=== PATIENT | female | born 1955 | race Hispanic/Latino ===

== ENCOUNTER 2018-05-17 07:03 | Day surgery (SDC) | payer MEDICARE ==
[2018-05-17 10:03] LABS: Hematocrit 43.4 % (30.3-42.9); Hemoglobin 14.7 gm/dl (10.1-14.3); Mean Corpuscular HGB Conc 34 % (30-34); Mean Corpuscular Hemoglobin 31 pg (28-32); Mean Corpuscular Volume 90 fl (79-97); Platelet Count 277 K/mm3 (140-440); Red Blood Count 4.83 M/mm3 (3.65-5.03)
[2018-05-17 10:53] LABS: INR 0.83 (0.87-1.13)
[2018-05-17] MEDS ORDERED: XYLOCAINE 1% 20 mL ONE (11:42)
[2018-05-17] MEDS ORDERED: VERSED IV ONE (11:52)
[2018-05-17] MEDS ORDERED: SUBLIMAZE IV ONE (11:58)
[2018-05-17] MEDS ORDERED: GELFOAM 12 X 7 TP ONE (12:31)
--- NOTE | 2018-05-17 13:51 | Cat Scan Report ---
CT BIOPSY OF ABDOMINAL/RETRO MASS HISTORY: Left adrenal mass. DESCRIPTION OF PROCEDURE: Informed consent was obtained. Sterile technique was utilized. Conscious sedation was accomplished with Versed and fentanyl. Skin anesthetization with 1% lidocaine. Independent cardiorespiratory monitoring by RN. The patient was sedated for 20 minutes. Intra-observer time of [address] guidance, a 19-gauge introducer needle was advanced to the leading edge of a 3.9 cm left adrenal mass. 3 separate 2.2 cm 20-gauge core biopsies were obtained. Pathology was present in the CT suite and deemed the samples adequate. Followup scan demonstrated trace hemorrhage at the biopsy site but no uncontained hemorrhage. A small amount of Gelfoam was placed in the biopsy tract. The patient tolerated the procedure without complaint and left radiology in stable condition. IMPRESSION: Successful CT-guided biopsy of a 3.9 cm left adrenal mass.
[2018-05-17 15:37] VITALS: BP 114/43
== END 2018-05-17 15:25 | disposition home or self-care (01) ==
LOC: CATHLABREC 07:03 → EDSTATUS 08:30 → CATHLABREC 15:25
PROVIDERS: ATTEND Internal Medicine Endocrinology, Diabetes & Metabolism
DX: E27.8 Other specified disorders of adrenal gland (principal); R19.09 Other intra-abdominal and pelvic swelling, mass and lump; E78.00 Pure hypercholesterolemia, unspecified; J44.9 Chronic obstructive pulmonary disease, unspecified; M19.90 Unspecified osteoarthritis, unspecified site; Z98.49 Cataract extraction status, unspecified eye; Z98.890 Other specified postprocedural states; Z80.8 Family history of malignant neoplasm of other organs or systems; Z79.899 Other long term (current) drug therapy; Z79.84 Long term (current) use of oral hypoglycemic drugs
CPT/HCPCS: 36415; 49180; 77012; 82962; 85027; 85610; 85730; 88173; 88305; 88333; 88342; A4649; J3010

== ENCOUNTER 2019-03-11 17:10 | Emergency (ER) | payer MEDICARE ==
--- NOTE | 2019-03-11 17:19 | Event Note ---
ED Screening Note Date of service: 03/11/19 Time: 17:18 ED Screening Note: 63 y/o female comes for right wrist pain s.p fall yesterday. This initial assessment/diagnostic orders/clinical plan/treatment(s) is/are subject to change based on patients health status, clinical progression and re-assessment by fellow clinical providers in the ED. Further treatment and workup at subsequent clinical providers discretion. Patient/guardian urged not to elope from the ED as their condition may be serious if not clinically assessed and managed. Initial orders include:
--- NOTE | 2019-03-11 18:08 | XRay Report ---
Right wrist 3 views INDICATION: Right wrist pain after injury. IMPRESSION: Evidence of an impacted nondisplaced fracture through the distal radius. Osteopenia. Signer Name: Danny Arnold MD Signed: 03/11/2019 6:04 PM Workstation Name: [id number]
[2019-03-11] MEDS ORDERED: NORCO 5/325 PO ONE (19:46)
[2019-03-11] MEDS ORDERED: IBUPROFEN PO ONE (19:48)
[2019-03-11] MEDS ORDERED: ZOFRAN ODT PO ONE (19:48)
--- NOTE | 2019-03-11 20:37 | Emergency Department Report ---
ED Upper Extremity Inj HPI - General Chief Complaint: Extremity Injury, Upper Stated Complaint: FALL/RT HAND INJURY Time Seen by Provider: 03/11/19 19:30 Source: patient Mode of arrival: Ambulatory Limitations: No Limitations - History of Present Illness Initial Comments: Patient is a 63-year-old white female with a history of COPD, seizures, hypertension, [id number] diabetes and chronic ulcer that isn't presents to the ED with complaint of acute onset persistent severe right wrist pain and swelling after she tripped over her dog and fell down landing on the right wrist 24 hours ago. Patient states that she is unable to perform any active range of motion without edges because of severe pain. Patient states that she's been taking her narcotic pain medications, Percocet at home with no relief. Patient denies head or neck injury, loss of consciousness, seizures, ankle, chest pain, shortness of breath, back pain, numbness and tingling of upper and lower extremities bilaterally, hip pain, change in vision or abdominal pain. MD Complaint: Injury to:: right, wrist (pain) -: Sudden, hour(s) (24) Other Extremity Injury: Wrist: Right (pain) Other Injuries: none Handedness: right Place: home Severity scale (0 -10): 8 Improves With: none Worsens With: movement of extremity Context: fall, injury Associated Symptoms: denies other symptoms, other. denies: weakness, numbness, neck pain, suspects foreign body, nausea/vomiting, heard/felt popping sensat - Related Data Home Medications Medication Instructions Recorded Confirmed Last Taken ALBUTEROL Inhaler (OR & NICU) 8.5 gm INHALATION PRN PRN 05/17/18 05/17/18 05/16/18 [ProAir HFA Inhaler] 1 puff Atorvastatin Calcium 40 mg PO DAILY 05/17/18 05/17/18 05/16/18 40 mg Budesonide/Formoterol Fumarate 10.2 mg INHALATION DAILY 05/17/18 05/17/18 05/16/18 [Symbicort 160-4.5 Mcg Inhaler] 1 puff Furosemide [Lasix TAB] 40 mg PO DAILY 05/17/18 05/17/18 05/16/18 40 Metformin HCl 500 mg PO DAILY 05/17/18 05/17/18 05/16/18 1 tab Omeprazole 40 mg PO DAILY 05/17/18 05/17/18 05/16/18 40 mg Valsartan 80 mg PO DAILY 05/17/18 05/17/18 05/16/18 1 Tab glipiZIDE [Glipizide] 5 mg PO TID 05/17/18 05/17/18 05/16/18 5 mg Previous Rx's Medication Instructions Recorded Last Taken Type Ibuprofen [Motrin] 400 mg PO Q8H PRN #20 tablet 03/11/19 Unknown Rx tiZANidine [Zanaflex 4mg TAB] 4 mg PO Q8H PRN #15 tablet 03/11/19 Unknown Rx Allergies Allergy/AdvReac Type Severity Reaction Status Date / Time No Known Allergies Allergy Verified 05/17/18 07:38 ED Review of Systems ROS: Stated complaint: FALL/RT HAND INJURY Other details as noted in HPI Constitutional: denies: chills, fever Eyes: denies: eye pain, eye discharge, vision change ENT: denies: ear pain, throat pain Respiratory: denies: cough, shortness of breath, wheezing Cardiovascular: denies: chest pain, palpitations Endocrine: no symptoms reported Gastrointestinal: denies: abdominal pain, nausea, diarrhea Genitourinary: denies: urgency, dysuria, discharge Musculoskeletal: joint swelling (right wrist mild swelling), arthralgia (right wrist pain). denies: back pain Skin: denies: rash, lesions Neurological: denies: headache, weakness, paresthesias Psychiatric: denies: anxiety, depression Hematological/Lymphatic: denies: easy bleeding, easy bruising ED Past Medical Hx - Past Medical History Previous Medical History?: Yes Hx Diabetes: Yes Hx Arthritis: Yes Hx Seizures: Yes Hx Asthma: Yes Hx COPD: Yes (uses 2.5 L oxygen as needed) Hx Tuberculosis: No - Surgical History Past Surgical History?: Yes Hx Breast Surgery: Yes (biposies x4) - Social History Smoking Status: Current Every Day Smoker Substance Use Type: None - Medications Home Medications: Home Medications Medication Instructions Recorded Confirmed Last Taken Type ALBUTEROL Inhaler (OR & NICU) 8.5 gm INHALATION PRN PRN 05/17/18 05/17/18 05/16/18 History [ProAir HFA Inhaler] 1 puff Atorvastatin Calcium 40 mg PO DAILY 05/17/18 05/17/18 05/16/18 History 40 mg Budesonide/Formoterol Fumarate 10.2 mg INHALATION DAILY 05/17/18 05/17/18 05/16/18 History [Symbicort 160-4.5 Mcg Inhaler] 1 puff Furosemide [Lasix TAB] 40 mg PO DAILY 05/17/18 05/17/18 05/16/18 History 40 Metformin HCl 500 mg PO DAILY 05/17/18 05/17/18 05/16/18 History 1 tab Omeprazole 40 mg PO DAILY 05/17/18 05/17/18 05/16/18 History 40 mg Valsartan 80 mg PO DAILY 05/17/18 05/17/18 05/16/18 History 1 Tab glipiZIDE [Glipizide] 5 mg PO TID 05/17/18 05/17/18 05/16/18 History 5 mg Ibuprofen [Motrin] 400 mg PO Q8H PRN #20 tablet 03/11/19 Unknown Rx tiZANidine [Zanaflex 4mg TAB] 4 mg PO Q8H PRN #15 tablet 03/11/19 Unknown Rx ED Physical Exam - General Limitations: No Limitations General appearance: alert, in no apparent distress - Head Head exam: Present: atraumatic, normocephalic, normal inspection - Eye Eye exam: Present: normal appearance, PERRL, EOMI. Absent: scleral icterus, conjunctival injection, nystagmus, periorbital swelling, periorbital tenderness, other Pupils: Present: normal accommodation - ENT ENT exam: Present: normal exam, normal orophraynx, mucous membranes moist, TM's normal bilaterally, normal external ear exam - Neck Neck exam: Present: normal inspection - Respiratory Respiratory exam: Present: normal lung sounds bilaterally. Absent: respiratory distress, wheezes, rales, rhonchi, chest wall tenderness, accessory muscle use, decreased breath sounds, prolonged expiratory - Cardiovascular Cardiovascular Exam: Present: normal rhythm, tachycardia, normal heart sounds. Absent: systolic murmur, diastolic murmur, rubs, gallop - GI/Abdominal GI/Abdominal exam: Present: soft, normal bowel sounds. Absent: distended, tenderness, guarding, hyperactive bowel sounds, hypoactive bowel sounds, organomegaly - Rectal Rectal exam: Present: deferred - Extremities Exam Extremities exam: Present: normal inspection, tenderness (right wrist tenderness and mild swelling), normal capillary refill, joint swelling (right wrist) - Back Exam Back exam: Present: normal inspection, full ROM. Absent: tenderness, CVA tenderness (R), CVA tenderness (L), muscle spasm, paraspinal tenderness - Neurological Exam Neurological exam: Present: alert, oriented X3, CN II-XII intact, normal gait, reflexes normal - Psychiatric Psychiatric exam: Present: normal affect, normal mood - Skin Skin exam: Present: warm, dry, intact, normal color. Absent: rash ED Course Vital Signs 03/11/19 03/11/19 17:18 20:05 Temperature 98.1 F Pulse Rate 104 H Respiratory 16 18 Rate Blood Pressure 140/64 [Left] O2 Sat by Pulse 94 Oximetry - Reevaluation(s) Reevaluation #1: 03/11/19 20:47 Patient is alert and oriented 3 and is not in distress. Right wrist x-ray shows evidence of an impacted nondisplaced fracture through the distal radius. There is also osteopenic bones. Patient's right wrist was splinted with a short arm sugartong splint and immobilized on an arm sling. Patient was treated for pain in the ED and this sent home on anti-inflammatory medications and muscle relaxants since the patient already has Percocet at home. Patient is referred to the orthopedic surgeon online merchandising specialist for follow-up. Patient advised to contact Dr. Rose's office to schedule a follow up appointment for reevaluation. Patient is advised to return to the ED immediately if symptoms get worse. 03/11/19 20:51 ED Medical Decision Making - Radiology Data Radiology results: report reviewed, image reviewed Right wrist x-ray shows evidence of an impacted nondisplaced fracture through the distal radius. There is also osteopenic bones. - Medical Decision Making Patient is alert and oriented 3 and is not in distress. Right wrist x-ray shows evidence of an impacted nondisplaced fracture through the distal radius. There is also osteopenic bones. Patient's right wrist was splinted with a short arm sugartong splint and immobilized on an arm sling. Patient was treated for pain in the ED and this sent home on anti-inflammatory medications and muscle relaxants since the patient already has Percocet at home. Patient is referred to the orthopedic surgeon online merchandising specialist for follow-up. Patient advised to contact Dr. Rose's office to schedule a follow up appointment for reevaluation. Patient is advised to return to the ED immediately if symptoms get worse. - Differential Diagnosis right wrist fracture; right wrist contusion; right wrist sprain Critical care attestation.: If time is entered above; I have spent that time in minutes in the direct care of this critically ill patient, excluding procedure time. ED Disposition Clinical Impression: Colles' fracture of right radius, initial encounter for closed fracture, Contusion of right wrist, initial encounter Disposition: TO HOME OR SELFCARE Is pt being admited?: No Does the pt Need Aspirin: No Condition: Stable Instructions: Wrist Fracture in Adults (ED), Contusion in Adults (ED) Additional Instructions: Take medications with food, including urine narcotic pain medications at home, drink plenty of fluids and follow-up with the orthopedic surgeon online merchandising specialist Dr. Rose for further evaluation. Contact Dr. Rose's office first thing on Wednesday March 13, 2019 to schedule an appointment Prescriptions: Ibuprofen [Motrin] 400 mg PO Q8H PRN #20 tablet PRN Reason: Pain , Severe (7-10) tiZANidine [Zanaflex 4mg TAB] 4 mg PO Q8H PRN #15 tablet PRN Reason: Spasms Referrals: STEFFEN ROSE MD [Staff Physician] - 3-5 Days SHOAIB ACOSTA MD [Primary Care Provider] - 2-3 Days Time of Disposition: 20:39 Print Language: CHINESE
[2019-03-11 20:56] VITALS: BP 139/74
== END 2019-03-11 21:01 | disposition home or self-care (01) ==
LOC: ED 17:10
DX: S52.531A Colles' fracture of right radius, initial encounter for closed fracture (principal); S60.211A Contusion of right wrist, initial encounter; E11.9 Type 2 diabetes mellitus without complications; I10 Essential (primary) hypertension; F17.200 Nicotine dependence, unspecified, uncomplicated; M19.90 Unspecified osteoarthritis, unspecified site; J44.9 Chronic obstructive pulmonary disease, unspecified; Z79.899 Other long term (current) drug therapy; W19.XXXA Unspecified fall, initial encounter; Y93.89 Activity, other specified; Y92.019 Unspecified place in single-family (private) house as the place of occurrence of the external cause; Y99.8 Other external cause status
CPT/HCPCS: 82962; Q0162

== ENCOUNTER 2020-12-23 09:46 | Emergency (ER) | payer MEDICARE ==
--- NOTE | 2020-12-23 11:09 | Event Note ---
ED Screening Note Date of service: 12/23/20 Time: 11:07 ED Screening Note: Pt presents with increase SOB, and ST since yesterday; Also swelling bilateral ankle and foot x 1 week SHe has hx of DM and COPD on O2 mainly at night She still smokes Saw PCP this morning and sent here for further testing This initial assessment/diagnostic orders/clinical plan/treatment(s) is/are subject to change based on patients health status, clinical progression and re- assessment by fellow clinical providers in the ED. Further treatment and workup at subsequent clinical providers discretion. Patient/guardian urged not to elope from the ED as their condition may be serious if not clinically assessed and managed. Initial orders include: Dyspnea order set.
[2020-12-23 11:29] LABS: Basophils % (Auto) 0.4 % (0.0-1.8); Eosinophils # (Auto) 0.1 K/mm3 (0.0-0.4); Eosinophils % (Auto) 0.7 % (0.0-4.3); Hematocrit 48.7 % (30.3-42.9); Hemoglobin 16.3 gm/dl (10.1-14.3); Lymphocytes # (Auto) 1.5 K/mm3 (1.2-5.4); Lymphocytes % (Auto) 14.2 % (13.4-35.0); Mean Corpuscular HGB Conc 34 % (30-34); Mean Corpuscular Volume 95 fl (79-97); Monocytes # (Auto) 0.8 K/mm3 (0.0-0.8); Monocytes % (Auto) 7.4 % (0.0-7.3); Platelet Count 307 K/mm3 (140-440); Red Blood Count 5.13 M/mm3 (3.65-5.03); Red Cell Distribution Width 14.9 % (13.2-15.2)
--- NOTE | 2020-12-23 12:03 | XRay Report ---
XR chest routine 2V INDICATION / CLINICAL INFORMATION: SOB COMPARISON: None available. FINDINGS: SUPPORT DEVICES: None. HEART / MEDIASTINUM: No significant abnormality. LUNGS / PLEURA: Lungs are clear. Costophrenic sulci are sharp. No pneumothorax. ADDITIONAL FINDINGS: No significant additional findings. IMPRESSION: 1. No acute findings. Signer Name: Mikhail Eid MD Signed: 12/23/2020 11:58 AM Workstation Name: [id number]
[2020-12-23 12:07] LABS: Alanine Aminotransferase 14 units/L (7-56); Albumin 3.5 g/dL (3.9-5); BUN/Creatinine Ratio 18; Blood Urea Nitrogen 16 mg/dL (7-17); Hemolysis Index 13
[2020-12-23] MEDS ORDERED: ALBUTEROL 2.5 MG/3 ML NEBU IH ONE (14:18)
[2020-12-23] MEDS ORDERED: IPRATROPIUM 0.02% NEBU 2.5 ML IH ONE (14:18)
--- NOTE | 2020-12-23 14:43 | Emergency Department Report ---
ED General Adult HPI - General Chief complaint: Dyspnea/Respdistress Stated complaint: SOB Time Seen by Provider: 12/23/20 14:07 Source: patient Mode of arrival: Ambulatory Limitations: No Limitations - History of Present Illness Initial comments: The patient presents to the emergency department after being seen at physician's office who is Dr. Crooks at 9 AM this morning. Patient states she was sent here for evaluation of change in lung sounds. Patient states she has been having difficulty breathing for the last week due to the changes in the weather. Patient states that she is on O2 only at night at 2-1/2 L. On her arrival to the emergency department her O2 sats were 89% and she was placed on 2-1/2 L nasal cannula with O2 sats decreasing to 95%. Patient denies chest pain but states that for the last week she has had swelling to her lower extremities. -: unknown Severity scale (0 -10): 0 Improves with: none Worsens with: none Associated Symptoms: denies other symptoms Treatments Prior to Arrival: none - Related Data Home Medications Medication Instructions Recorded Confirmed Last Taken Albuterol Mdi (or & Nicu Only) 8.5 gm INHALATION PRN PRN 05/17/18 05/17/18 05/16/18 [ProAir HFA Inhaler] 1 puff Atorvastatin Calcium 40 mg PO DAILY 05/17/18 05/17/18 05/16/18 40 mg Budesonide/Formoterol Fumarate 10.2 mg INHALATION DAILY 05/17/18 05/17/18 05/16/18 [Symbicort 160-4.5 Mcg Inhaler] 1 puff Furosemide [Lasix TAB] 40 mg PO DAILY 05/17/18 05/17/18 05/16/18 40 Metformin HCl 500 mg PO DAILY 05/17/18 05/17/18 05/16/18 1 tab Omeprazole 40 mg PO DAILY 05/17/18 05/17/18 05/16/18 40 mg Valsartan 80 mg PO DAILY 05/17/18 05/17/18 05/16/18 1 Tab glipiZIDE [Glipizide] 5 mg PO TID 05/17/18 05/17/18 05/16/18 5 mg Previous Rx's Medication Instructions Recorded Last Taken Type Ibuprofen [Motrin] 400 mg PO Q8H PRN #20 tablet 03/11/19 Unknown Rx tiZANidine [Zanaflex 4mg TAB] 4 mg PO Q8H PRN #15 tablet 03/11/19 Unknown Rx Albuterol Mdi (or & Nicu Only) 2 puff IH Q4HR PRN #1 inhalation 12/23/20 Unknown Rx [ProAir HFA Inhaler] Amoxicillin/Potassium Clav 1 each PO BID #14 tablet 12/23/20 Unknown Rx [Augmentin 875-125 Tablet] predniSONE [Deltasone] 20 mg PO DAILY #15 tablet 12/23/20 Unknown Rx Allergies Allergy/AdvReac Type Severity Reaction Status Date / Time No Known Allergies Allergy Verified 05/17/18 07:38 ED Review of Systems ROS: Stated complaint: SOB Other details as noted in HPI Comment: All other systems reviewed and negative Constitutional: denies: chills, fever Eyes: denies: eye pain, eye discharge, vision change ENT: denies: ear pain, throat pain Respiratory: shortness of breath, SOB with exertion, SOB at rest, wheezing. denies: cough Cardiovascular: denies: chest pain, palpitations Endocrine: no symptoms reported Gastrointestinal: denies: abdominal pain, nausea, diarrhea Genitourinary: denies: urgency, dysuria, discharge Musculoskeletal: denies: back pain, joint swelling, arthralgia Skin: denies: rash, lesions Neurological: denies: headache, weakness, paresthesias Psychiatric: denies: anxiety, depression Hematological/Lymphatic: denies: easy bleeding, easy bruising ED Past Medical Hx - Past Medical History Hx Diabetes: Yes Hx Arthritis: Yes Hx Seizures: Yes Hx Asthma: Yes Hx COPD: Yes (uses 2.5 L oxygen as needed) Hx Tuberculosis: No - Surgical History Hx Breast Surgery: Yes (biposies x4) - Social History Smoking Status: Current Every Day Smoker - Medications Home Medications: Home Medications Medication Instructions Recorded Confirmed Last Taken Type Albuterol Mdi (or & Nicu Only) 8.5 gm INHALATION PRN PRN 05/17/18 05/17/18 05/16/18 History [ProAir HFA Inhaler] 1 puff Atorvastatin Calcium 40 mg PO DAILY 05/17/18 05/17/18 05/16/18 History 40 mg Budesonide/Formoterol Fumarate 10.2 mg INHALATION DAILY 05/17/18 05/17/18 05/16/18 History [Symbicort 160-4.5 Mcg Inhaler] 1 puff Furosemide [Lasix TAB] 40 mg PO DAILY 05/17/18 05/17/18 05/16/18 History 40 Metformin HCl 500 mg PO DAILY 05/17/18 05/17/18 05/16/18 History 1 tab Omeprazole 40 mg PO DAILY 05/17/18 05/17/18 05/16/18 History 40 mg Valsartan 80 mg PO DAILY 05/17/18 05/17/18 05/16/18 History 1 Tab glipiZIDE [Glipizide] 5 mg PO TID 05/17/18 05/17/18 05/16/18 History 5 mg Ibuprofen [Motrin] 400 mg PO Q8H PRN #20 tablet 03/11/19 Unknown Rx tiZANidine [Zanaflex 4mg TAB] 4 mg PO Q8H PRN #15 tablet 03/11/19 Unknown Rx Albuterol Mdi (or & Nicu Only) 2 puff IH Q4HR PRN #1 inhalation 12/23/20 Unknown Rx [ProAir HFA Inhaler] Amoxicillin/Potassium Clav 1 each PO BID #14 tablet 12/23/20 Unknown Rx [Augmentin 875-125 Tablet] predniSONE [Deltasone] 20 mg PO DAILY #15 tablet 12/23/20 Unknown Rx ED Physical Exam - General Limitations: No Limitations General appearance: alert, in no apparent distress - Head Head exam: Present: atraumatic, normocephalic - Eye Eye exam: Present: normal appearance, PERRL, EOMI - ENT ENT exam: Present: mucous membranes moist - Neck Neck exam: Present: normal inspection - Respiratory Respiratory exam: Present: wheezes, decreased breath sounds. Absent: respiratory distress - Cardiovascular Cardiovascular Exam: Present: regular rate, normal rhythm. Absent: systolic murmur, diastolic murmur, rubs, gallop - GI/Abdominal GI/Abdominal exam: Present: soft, normal bowel sounds. Absent: distended, tenderness - Extremities Exam Extremities exam: Present: normal inspection, other (pitting edema) - Back Exam Back exam: Present: normal inspection - Neurological Exam Neurological exam: Present: alert, oriented X3, CN II-XII intact. Absent: motor sensory deficit - Psychiatric Psychiatric exam: Present: normal affect, normal mood - Skin Skin exam: Present: warm, dry, intact, normal color. Absent: rash ED Course Vital Signs 12/23/20 12/23/20 12/23/20 09:50 10:09 11:12 Temperature 98.2 F Pulse Rate 74 109 H Respiratory 20 Rate Blood Pressure Blood Pressure 148/55 [Right] O2 Sat by Pulse 89 94 Oximetry 12/23/20 12/23/20 12/23/20 14:26 14:30 14:37 Temperature Pulse Rate 86 Respiratory 15 14 16 Rate Blood Pressure 106/43 Blood Pressure [Right] O2 Sat by Pulse 98 98 Oximetry ED Medical Decision Making - Lab Data Result diagrams: 12/23/20 11:10 12/23/20 11:10 Lab Results 12/23/20 12/23/20 12/23/20 Range/Units 11:10 11:10 11:10 WBC 10.6 (4.5-11.0) K/mm3 RBC 5.13 H (3.65-5.03) M/mm3 Hgb 16.3 H (10.1-14.3) gm/dl Hct 48.7 H (30.3-42.9) % MCV 95 (79-97) fl MCH 32 (28-32) pg MCHC 34 (30-34) % RDW 14.9 (13.2-15.2) % Plt Count 307 (140-440) K/mm3 Lymph % (Auto) 14.2 (13.4-35.0) % [place] % (Auto) 7.4 H (0.0-7.3) % Eos % (Auto) 0.7 (0.0-4.3) % Baso % (Auto) 0.4 (0.0-1.8) % Lymph # (Auto) 1.5 (1.2-5.4) K/mm3 [place] # (Auto) 0.8 (0.0-0.8) K/mm3 Eos # (Auto) 0.1 (0.0-0.4) K/mm3 Baso # (Auto) 0.0 (0.0-0.1) K/mm3 Seg Neutrophils % 77.3 H (40.0-70.0) % Seg Neutrophils # 8.2 H (1.8-7.7) K/mm3 Sodium 140 (137-145) mmol/L Potassium 4.6 (3.6-5.0) mmol/L Chloride 95.1 L (98-107) mmol/L Carbon Dioxide 40 H (22-30) mmol/L Anion Gap 10 mmol/L BUN 16 (7-17) mg/dL Creatinine 0.9 (0.6-1.2) mg/dL Estimated GFR > 60 ml/min BUN/Creatinine Ratio 18 % Glucose 157 H (65-100) mg/dL Calcium 9.0 (8.4-10.2) mg/dL Magnesium 1.80 (1.7-2.3) mg/dL Total Bilirubin 0.40 (0.1-1.2) mg/dL AST 18 (5-40) units/L ALT 14 (7-56) units/L Alkaline Phosphatase 71 (35-129) units/L Troponin T < 0.010 (0.00-0.029) ng/mL NT-Pro-B Natriuret Pep (0-900) pg/mL Total Protein 6.8 (6.3-8.2) g/dL Albumin 3.5 L (3.9-5) g/dL Albumin/Globulin Ratio 1.1 % Lipase 11 L (13-60) units/L 12/23/20 12/23/20 Range/Units 13:41 13:41 WBC (4.5-11.0) K/mm3 RBC (3.65-5.03) M/mm3 Hgb (10.1-14.3) gm/dl Hct (30.3-42.9) % MCV (79-97) fl MCH (28-32) pg MCHC (30-34) % RDW (13.2-15.2) % Plt Count (140-440) K/mm3 Lymph % (Auto) (13.4-35.0) % [place] % (Auto) (0.0-7.3) % Eos % (Auto) (0.0-4.3) % Baso % (Auto) (0.0-1.8) % Lymph # (Auto) (1.2-5.4) K/mm3 [place] # (Auto) (0.0-0.8) K/mm3 Eos # (Auto) (0.0-0.4) K/mm3 Baso # (Auto) (0.0-0.1) K/mm3 Seg Neutrophils % (40.0-70.0) % Seg Neutrophils # (1.8-7.7) K/mm3 Sodium (137-145) mmol/L Potassium (3.6-5.0) mmol/L Chloride (98-107) mmol/L Carbon Dioxide (22-30) mmol/L Anion Gap mmol/L BUN (7-17) mg/dL Creatinine (0.6-1.2) mg/dL Estimated GFR ml/min BUN/Creatinine Ratio % Glucose (65-100) mg/dL Calcium (8.4-10.2) mg/dL Magnesium (1.7-2.3) mg/dL Total Bilirubin (0.1-1.2) mg/dL AST (5-40) units/L ALT (7-56) units/L Alkaline Phosphatase (35-129) units/L Troponin T < 0.010 (0.00-0.029) ng/mL NT-Pro-B Natriuret Pep 3277 H (0-900) pg/mL Total Protein (6.3-8.2) g/dL Albumin (3.9-5) g/dL Albumin/Globulin Ratio % Lipase (13-60) units/L - Radiology Data Radiology results: report reviewed - Medical Decision Making On further evaluation patient at 3:30 PM she tells me that she takes Lasix daily Patient given IV Lasix in the ED and received a continuous albuterol treatment Patient states her breathing has significantly improved Critical Care Time: Yes Critical care time in (mins) excluding proc time.: 35 Critical care attestation.: If time is entered above; I have spent that time in minutes in the direct care of this critically ill patient, excluding procedure time. ED Disposition Clinical Impression: COPD exacerbation, CHF exacerbation Disposition: DC- TO HOME OR SELFCARE Is pt being admited?: No Does the pt Need Aspirin: No Condition: Stable Instructions: Chronic Obstructive Pulmonary Disease (ED), Chronic Obstructive Pulmonary Disease, Heart Failure Action Plan, Chronic Obstructive Pulmonary Disease Exacerbation, Heart Failure, Self Care Additional Instructions: Return if worse Continue your Lasix at home Referrals: ALESSANDRO CROOKS PA [Primary Care Provider] - 3-5 Days SHOAIB ACOSTA MD [Staff Physician] - 3-5 Days Time of Disposition: 16:17
[2020-12-23] MEDS ORDERED: FUROSEMIDE 20 MG/2 ML INJ IV ONE (16:09)
[2020-12-23 16:55] VITALS: BP 114/51
--- NOTE | 2020-12-26 10:34 | Electrocardiograph Report ---
[facility] Test Date: 2020-12-23 Test Time: 14:23:46 Pat Name: SOM WHITE Department: Room: Gender: F Fleet Assistant: CORA : [id number] Requested By: RACHEL STONE Order Number: [id number] Reading MD: Janel Mitchell Measurements Intervals [place] Rate: 84 P: 83 CO: 138 QRS: 101 QRSD: 85 T: -13 QT: 457 QTc: 542 Interpretive Statements Sinus rhythm Ventricular premature complex Right axis deviation Abnrm T, probable ischemia, anterolateral lds Prolonged QT interval No previous ECG available for comparison Electronically Signed On 12-26-2020 10:33:53 EDT by Janel Mitchell
== END 2020-12-23 17:02 | disposition home or self-care (01) ==
LOC: ED 09:46
DX: J44.1 Chronic obstructive pulmonary disease with (acute) exacerbation (principal); I50.9 Heart failure, unspecified; E11.9 Type 2 diabetes mellitus without complications; M19.91 Primary osteoarthritis, unspecified site; R56.9 Unspecified convulsions; F17.200 Nicotine dependence, unspecified, uncomplicated; Z98.890 Other specified postprocedural states; Z79.1 Long term (current) use of non-steroidal anti-inflammatories (NSAID); Z79.2 Long term (current) use of antibiotics; Z79.899 Other long term (current) drug therapy
CPT/HCPCS: 36415; 71046; 80053; 83690; 83735; 83880; 84484; 85025; 93005; 94640; 96374; 99291; J1940; 94644

== ENCOUNTER 2021-01-23 07:47 | Day surgery (SDC) | payer MEDICARE ==
[2021-01-23] MEDS ORDERED: SODIUM CHLORIDE 0.9% 500 ML 500 ML IV SCH (09:00)
[2021-01-23] MEDS ORDERED: ASPIRIN EC 325 MG TAB PO SCH (09:00)
[2021-01-23 09:16] VITALS: BP 142/61
[2021-01-23 09:56] LABS: INR 0.97 (0.87-1.13)
[2021-01-23 09:59] LABS: Blood Urea Nitrogen 11 mg/dL (7-17); Calcium 8.8 mg/dL (8.4-10.2); Hemolysis Index 7
[2021-01-23 10:03] LABS: BUN/Creatinine Ratio 16
[2021-01-23 10:09] LABS: Hematocrit 48.4 % (30.3-42.9); Hemoglobin 16.2 gm/dl (10.1-14.3); Mean Corpuscular HGB Conc 34 % (30-34); Mean Corpuscular Volume 92 fl (79-97); Platelet Count 223 K/mm3 (140-440); Red Blood Count 5.27 M/mm3 (3.65-5.03); Red Cell Distribution Width 14.6 % (13.2-15.2)
[2021-01-23] MEDS ORDERED: HEPARIN/NS 5000 UNIT/500ML 500 ML IR ONE (11:03)
[2021-01-23] MEDS ORDERED: LIDOCAINE (2%) 20 MG/1 ML VIAL 20 ML MDV INFILTRATI ONE (11:04)
--- NOTE | 2021-01-23 11:49 | Event Note ---
Date: 01/23/21 65-year-old woman who was referred by her primary saw operator Dr. Rose for an outpatient cardiac catheterization. Patient has severe COPD on ambulatory oxygen. Patient informs me that she is unable to lay down even with the head up to undergo the procedure. She states that she can only sit up comfortably and that is the position in which she sleeps. The procedure is canceled, due to the patient's inability, and/or unwillingness to lay supine.
== END 2021-01-23 07:48 | disposition home or self-care (01) ==
LOC: CATHLABREC 07:47
PROVIDERS: ATTEND Internal Medicine Cardiovascular Disease
DX: R94.31 Abnormal electrocardiogram [ECG] [EKG] (principal); E78.00 Pure hypercholesterolemia, unspecified; J43.9 Emphysema, unspecified; M19.90 Unspecified osteoarthritis, unspecified site; M79.7 Fibromyalgia; Z53.8 Procedure and treatment not carried out for other reasons; Z88.8 Allergy status to other drugs, medicaments and biological substances; Z79.899 Other long term (current) drug therapy; Z79.84 Long term (current) use of oral hypoglycemic drugs; Z79.82 Long term (current) use of aspirin; Z87.891 Personal history of nicotine dependence; Z80.8 Family history of malignant neoplasm of other organs or systems
CPT/HCPCS: 36415; 80048; 85027; 85610; 85730; J1644; J7040